=== PATIENT | male | born 1950 | race Caucasian/White ===

== ENCOUNTER 2021-09-15 10:03 | Day surgery (SDC) | payer MEDICARE ==
[2021-09-15] MEDS ORDERED: fentaNYL Citrate/PF 100 MCG/2 ML SYRINGE ONE (10:28)
[2021-09-15] MEDS ORDERED: Midazolam HCl 2 mg/2 ml Vial ONE (10:28)
[2021-09-15] MEDS ORDERED: Phenylephrine 2.5% Ophth Soln 5 ML BOT ONE (10:32)
[2021-09-15] MEDS ORDERED: Cyclopentolate 1% Opth Drop 2 ML BOT ONE (10:32)
[2021-09-15] MEDS ORDERED: EPINEPHrine 0.3 MG in Ophthalmic Irrigation Solution 500 ML IRR SCH (10:45)
[2021-09-15] MEDS ORDERED: Phenylephrine 10 MG/ML VIAL ONE (11:39)
[2021-09-15] MEDS ORDERED: Metoclopramide HCl 10 MG/2 ML VIAL ONE (11:39)
[2021-09-15] MEDS ORDERED: Ondansetron PF 4 MG/2 ML Vial ONE (11:39)
[2021-09-15] MEDS ORDERED: PROPOFOL 200 MG/20 ML VIAL ONE (11:39)
[2021-09-15] MEDS ORDERED: ePHEDrine 50 MG/ML VIAL ONE ×2 (11:39)
[2021-09-15] MEDS ORDERED: Triamcinolone 40 MG/ML VIAL ONE (11:48)
[2021-09-15] MEDS ORDERED: CEFAZOLIN 1 GM VIAL ONE (11:48)
[2021-09-15] MEDS ORDERED: Maxitrol 0.1% Opth Oint 3.5 GM TUBE ONE (11:48)
[2021-09-15] MEDS ORDERED: Lidocaine 1% PF 5 ML VIAL ONE (11:48)
== END 2021-09-15 15:10 | disposition home or self-care (01) ==
LOC: SDC 10:03
PROVIDERS: ATTEND Ophthalmology Retina Specialist
PROC: 08T53ZZ Resection of Left Vitreous, Percutaneous Approach (ICD-10-PCS; principal; 2021-09-15)
PROC: 08QF3ZZ Repair Left Retina, Percutaneous Approach (ICD-10-PCS; 2021-09-15)
DX: H33.012 Retinal detachment with single break, left eye (principal); Z20.822 Contact with and (suspected) exposure to COVID-19
CPT/HCPCS: 67025; 87811; J0171; J0690; J2250; J2370; J2405; J2704; J2765; J3301; J3490